=== PATIENT | female | born 1975 | race Caucasian/White ===

== ENCOUNTER → 2018-11-18 09:11 | Outpatient (CLI) | payer OTHER, SELFPAY ==
[2018-11-18 10:09] LABS: Cholesterol 187 mg/dL (140-199); Glucose 97 mg/dL (70-100); HDL Cholesterol 69 mg/dL (40-60); LDL Cholesterol Calculated 106 mg/dL (<100); Triglycerides 62 mg/dL (35-150)
== END ==
PROVIDERS: PCP Family Medicine; Visit Provider Family Medicine
DX: Z13.1 Encounter for screening for diabetes mellitus (principal)
CPT/HCPCS: 36415; 80061; 82947

== ENCOUNTER → 2018-12-05 09:01 | Outpatient (CLI) | payer OTHER, SELFPAY ==
--- NOTE | 2018-12-05 09:03 | DI.MG.S_ITS ---
BILATERAL DIGITAL SCREENING MAMMOGRAM 3D/2D WITH CAD: 12/05/2018 CLINICAL: Baseline exam. Routine screening. No prior exams were available for comparison. The tissue of both breasts is extremely dense, which lowers the sensitivity of mammography. Current study was also evaluated with a Computer Aided Detection (CAD) system. No significant masses, calcifications, or other findings are seen in either breast. IMPRESSION: NEGATIVE There is no mammographic evidence of malignancy. A 1 year screening mammogram is recommended. This exam was interpreted at Station ID: [id number]. NOTE: For mammograms, a report in lay terms will be sent to the patient. Approximately 15% of breast malignancies will not be visualized mammographically. In the management of a palpable breast mass, a negative mammogram must not discourage biopsy of a clinically suspicious lesion. Electronically Signed By: Airam vega/lia:12/05/2018 09:59:09 letter sent: Normal Exam ACR BI-RADS Category 1: Negative [id number]
== END ==
PROVIDERS: PCP Family Medicine; Visit Provider Family Medicine
DX: Z12.31 Encounter for screening mammogram for malignant neoplasm of breast (principal)
CPT/HCPCS: 77063; 77067

== ENCOUNTER → 2022-10-31 08:27 | Outpatient (CLI) | payer OTHER, SELFPAY ==
[2022-10-31 09:25] LABS: Add Manual Diff / Slide Review NO; Basophils Absolute Auto 0 /uL (0-100); Basophils Percent Auto 0.8 % (0-2); Eosinophils Absolute Auto 300 /uL (0-450); Eosinophils Percent Auto 8.2 % (2-4); Hematocrit 35.3 % (36-46); Hemoglobin 12.2 g/dL (12.0-16.0); Lymphocytes Absolute Auto 1300 /uL (1100-4500); Lymphocytes Percent Auto 31.4 % (25-40); Mean Corpuscular HGB Conc 34.6 % (30-36); Mean Corpuscular Hemoglobin 31.2 PG (26-34); Monocytes Absolute Auto 400 /uL (0-900); Monocytes Percent Auto 9.3 % (3-14); Neutrophils Absolute Auto 2000 /uL (1500-7000); Neutrophils Percent Auto 50.3 % (50-75); Platelet Count 245 X10^3/uL (150-400); Red Blood Cell Count 3.92 X10^6/uL (4.0-5.2); Red Cell Distribution Width 13.1 % (11.6-14.8)
[2022-10-31 10:05] LABS: Alanine Aminotransferase 19 IU/L (<35); Albumin 3.7 g/dL (3.5-5.0); Albumin Globulin Ratio 1.4 (1.0-2.8); Alkaline Phosphatase 40 U/L (38-126); Aspartate Aminotransferase 21 IU/L (14-36); BUN Creatinine Ratio 24.2 (6-22); Bilirubin Total 0.6 mg/dL (0.2-1.3); Blood Urea Nitrogen 16 mg/dL (7-17); Calcium 8.8 mg/dL (8.4-10.2); Carbon Dioxide 27 mmol/L (22-32); Chloride 106 mmol/L (98-107); Cholesterol 178 mg/dL (140-199); Estimated Glomerular Filt Rate > 60 mL/min (>60); Globulin 2.7 g/dL (1.7-4.1); Glucose 106 mg/dL (70-100); HDL Cholesterol 74 mg/dL (40-60); HEMOLYSIS < 15 (0-50); LDL Cholesterol Calculated 91 mg/dL (<100); Potassium 4.2 mmol/L (3.4-5.1); Sodium 139 mmol/L (137-145); Total Protein 6.4 g/dL (6.3-8.2); Triglycerides 64 mg/dL (35-150)
[2022-10-31 10:33] LABS: TSH w/ Reflex to FT4 0.65 uIU/mL (0.47-4.68)
[2022-11-01 08:31] LABS: x Labcorp Estim. Avg Glu (eAG) 114 mg/dL (.); x Labcorp Hemoglobin A1c 5.6 % (4.8-5.6)
== END ==
PROVIDERS: PCP Family Medicine; Referring Provider Family Medicine; Visit Provider Family Medicine
DX: Z13.0 Encounter for screening for diseases of the blood and blood-forming organs and certain disorders involving the immune mechanism (principal); Z13.9 Encounter for screening, unspecified; Z13.220 Encounter for screening for lipoid disorders; E03.9 Hypothyroidism, unspecified; E78.5 Hyperlipidemia, unspecified; Z13.29 Encounter for screening for other suspected endocrine disorder
CPT/HCPCS: 36415; 80053; 80061; 83036; 84443; 85025

== ENCOUNTER → 2023-09-10 15:38 | Outpatient (CLI) | payer OTHER, SELFPAY ==
--- NOTE | 2023-09-10 16:42 | DI.MRI.S_ITS ---
BREAST MRI OF BOTH BREASTS: 09/10/2023 CLINICAL: High Risk Screening. PROCEDURE: MR BREAST BI WO/W CON INDICATIONS: follow up TECHNIQUE: The patient was placed prone in a dedicated breast imaging coil. Precontrast axial STIR and 3D FLASH without fat saturation sequences were obtained. Both before and after bolus injection of contrast, sequential 1-minute axial 3D FLASH with fat saturation sequences for 3 time points, with subtraction images and maximum intensity projections (MIP's) generated. Delayed sagittal FLASH images with fat saturation were also obtained. CONTRAST: 20 cc ProHance IV contrast. Computer-aided detection, including computer algorithm analysis of MRI image data for lesion detection and characterization, pharmacokinetic analysis, with further physician review for interpretation, was performed. COMPARISON: US, US BREAST LIMITED RIGHT, 03/12/2020, 16:15. [facility], MG, MG SCREENING BILATERAL DIGITAL BREAST TOMOSYNTHESIS, 07/31/2023, 11:23. [facility], US, US BREAST LIMITED RIGHT, 05/12/2020, 11:02. [facility], MG, MG DIAGNOSTIC UNILATERAL DIGITAL BREAST TOMOSYNTHESIS RIGHT, 05/12/2020, 10:27. MG, MG DIAGNOSTIC BILATERAL DIGITAL BREAST TOMOSYNTHESIS, 03/12/2020, 15:33. [facility], MG, MM SCREENING MAMMO BI, 12/05/2018, 9:42. FINDINGS: Image quality: Excellent. There is marked background parenchymal enhancement. Right breast: Multiple small benign cysts. Several small enhancing foci. Central breast middle depth enhancing mass measuring 0.9 x 0.6 x 0.6 cm, ( and ). The mass is circumscribed with heterogeneous enhancement containing hypoenhancing septations. Kinetic analysis demonstrates slow initial phase and persistent delayed phase. Left breast: Multiple small benign cysts. Larger cyst 3 o'clock posterior depth measuring 2.1 cm, (10/12). Multiple benign circumscribed masses. For example left breast 3 o'clock posterior depth measuring 1.3 x 1.2 x 1.2 cm, ( and ). This is located anterior to the above described cyst. The mass is circumscribed with heterogeneous enhancement containing hypoenhancing septations. Kinetic analysis demonstrates slow initial phase and persistent delayed phase. Left breast 4 o'clock middle depth circumscribed enhancing mass measuring 0.9 x 0.9 x 0.7 cm, ( and ). The mass is circumscribed with heterogeneous enhancement containing hypoenhancing septations. Kinetic analysis demonstrates slow initial phase and persistent delayed phase. A 3rd enhancing mass at 8 o'clock anterior depth measuring 0.6 cm, (). Kinetic analysis demonstrates slow initial phase and persistent delayed phase. Miscellaneous: No enlarged lymph nodes. IMPRESSION: BENIGN 1. 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 Multiple benign cysts bilaterally. 2. Lymph nodes: No enlarged lymph nodes. BIRADS 2 A 1 year screening mammogram is recommended. 07/31/2024 COMMENT: The imaging literature indicates that a negative contrast breast MRI examination has a high sensitivity and a moderate specificity for detecting and excluding invasive carcinomas to a detection threshold of 3-5 mm; nonetheless, appropriate clinical and mammographic follow-up are recommended. MRI is not sensitive for detecting DCIS (ductal carcinoma in situ) and may not detect large invasive neoplasms that show only minimal enhancement such as mucinous carcinoma. If there are suspicious calcifications or clinically worrisome palpable masses, then biopsy should still be considered. Invasive neoplasms can be hidden by co-existent and benign enhancement caused by mastitis, hormone therapy effects, radiation therapy, , and recent biopsy or surgery. False positive examinations can occur in a number of circumstances, including breasts that have recently been subject to invasive procedures and those that contain atypical ductal hyperplasia, hormonally stimulated glandular tissue, fat necrosis, or radial scars. Dictated by: Sal Saldana M.D. on 09/10/2023 at 17:08 This exam was interpreted at Station ID: [id number]. Electronically Signed By: Sal Saldana M.D. slc/:09/10/2023 17:35:51 copy to: Sole Lanza M.D., [facility], ph: [phone], fax: [phone] letter sent: Normal Exam ACR BI-RADS Category 2: Benign Finding(s) 3340F
== END ==
PROVIDERS: PCP Family Medicine; Referring Provider Family Medicine; Visit Provider Family Medicine
DX: R92.8 Other abnormal and inconclusive findings on diagnostic imaging of breast (principal); N63.25 Unspecified lump in the left breast, overlapping quadrants; N63.10 Unspecified lump in the right breast, unspecified quadrant; N60.01 Solitary cyst of right breast; N60.02 Solitary cyst of left breast; Z91.89 Other specified personal risk factors, not elsewhere classified
CPT/HCPCS: 77049; A9579

== ENCOUNTER → 2024-06-24 09:07 | Outpatient (CLI) | payer OTHER, SELFPAY ==
--- NOTE | 2024-06-24 09:11 | DI.RAD.S_ITS ---
PROCEDURE: XR LUMBAR SPINE 2-3V INDICATIONS: back pain with radiculopathy TECHNIQUE: 3 views of the lumbar spine were acquired. COMPARISON: None. FINDINGS: Bones: 5 [id number] vertebrae are present. There is mild levocurvature of the lumbar spine. No acute vertebral body compression fractures. Mild lower lumbar facet arthropathy. Mild degenerative changes of the lower lumbar spine most prominent at L5-S1. No suspicious bony lesions. Soft tissues: Overlying bowel gas pattern is normal. No suspicious soft tissue calcifications. IMPRESSION: Lumbar spine without acute osseous abnormalities. Mild levocurvature of the lumbar spine. Mild lower lumbar spondylosis most pronounced at L5-S1. Dictated by: Luis Elizabeth M.D. on 06/24/2024 at 20:36 Approved by: Luis Elizabeth M.D. on 06/24/2024 at 20:37
== END ==
PROVIDERS: PCP Family Medicine; Referring Provider Family Medicine; Visit Provider Family Medicine
DX: M47.817 Spondylosis without myelopathy or radiculopathy, lumbosacral region (principal); M54.10 Radiculopathy, site unspecified
CPT/HCPCS: 72100

== ENCOUNTER → 2025-02-25 08:19 | Outpatient (CLI) | payer OTHER, SELFPAY ==
--- NOTE | 2025-02-25 08:19 | DI.MG.S_ITS ---
MM screening mammo BI: 02/25/2025. BI-RADS: 1 CLINICAL: 49-year old female for bilateral screening mammogram. Tyrer-Cuzick lifetime risk of 14.1%. No personal or first-degree family history of breast cancer. PRIOR EXAMS 09/10/2023, 07/31/2023, 05/12/2020, 03/12/2020. MAMMOGRAPHY TECHNIQUE: 2D and 3D (tomosynthesis) digital mammographic views obtained, with additional images as needed for full coverage. Current study was also evaluated with a Computer Aided Detection (CAD) system. DENSITY D. The breasts are extremely dense, which lowers the sensitivity of mammography. MAMMOGRAPHY FINDINGS Bilateral: No suspicious mass, asymmetry, microcalcification, or other abnormality seen. IMPRESSION: * No evidence of malignancy. RECOMMENDATIONS Bilateral * Annual screening mammography. OVERALL ASSESSMENT CATEGORY BI-RADS-1: Negative. The [employer] recommends annual screening mammography beginning at age 40 for women with average risk of breast cancer. ELECTRONICALLY SIGNED: Luis Elizabeth M.D. on 02/26/2025 at 09:22:44 PM PT Interpreting Station ID: [id number]
== END ==
LOC: MAMMO 08:19
PROVIDERS: PCP Family Medicine; Referring Provider Family Medicine; Visit Provider Family Medicine
DX: Z12.31 Encounter for screening mammogram for malignant neoplasm of breast (principal); R92.343 Mammographic extreme density, bilateral breasts
CPT/HCPCS: 77063; 77067